=== PATIENT | male | born 1980 | race African-American/Black ===

== ENCOUNTER 2016-08-19 20:08 | Emergency (ER) | payer OTHER ==
[~2016-08-19] VITALS: Ht 190.5 cm; Wt 85.0 kg
[~2016-08-19 20:08] MED LIST: LORC10TA PO; PRAM1AER PR; Z.0.NO CURRENT MEDS
[2016-08-19 20:28] VITALS: BP 150/82; PULSE 87; RESP 17; TEMP 98.2; O2SAT 98
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
[2016-08-19] MEDS ORDERED: TETANUS/DIPHTHERIA TOXOID ADULT 0.5 ML VIAL IM ONE (20:45)
[2016-08-19 21:02] LABS: AUTOMATED NEUTROPHIL # 6.4 TH/MM3 (1.8-7.7); BASOPHIL # 0.1 TH/MM3 (0-0.2); BASOPHIL % 0.9 % (0.0-2.0); EOSINOPHIL # 0.2 TH/MM3 (0-0.4); EOSINOPHIL % 1.9 % (0.0-4.0); HEMO FLAGS DIFF FINAL; LYMPH % 31.1 % (9.0-44.0); LYMPHOCYTE # 3.4 TH/MM3 (1.0-4.8); MEAN CELL VOLUME 95.4 FL (80.0-100.0); MEAN CORPUSCULAR HEMOGLOBIN 33.6 PG (27.0-34.0); MEAN CORPUSCULAR HGB CONC 35.2 % (32.0-36.0); MONO % 6.5 % (0.0-8.0); NEUT % 59.6 % (16.0-70.0); PLATELET COUNT 289 TH/MM3 (150-450); RED BLOOD COUNT 5.03 MIL/MM3 (4.50-5.90); WHITE BLOOD COUNT 10.8 TH/MM3 (4.0-11.0)
[2016-08-19 21:12] LABS: ANION GAP 10 MEQ/L (5-15)
[2016-08-19 21:15] LABS: ALKALINE PHOSPHATASE 78 U/L (45-117); ALT (GPT) 19 U/L (12-78); AST (GOT) 18 U/L (15-37); BICARBONATE 25.1 MEQ/L (21.0-32.0); BLOOD UREA NITROGEN 6 MG/DL (7-18); CHLORIDE 106 MEQ/L (98-107); GLOMERULAR FILTRATION RATE 106 ML/MIN (>89); POTASSIUM 3.5 MEQ/L (3.5-5.1); SODIUM (NA) 141 MEQ/L (136-145); TOTAL BILIRUBIN ADULT 0.3 MG/DL (0.2-1.0)
[2016-08-19 21:52] LABS: ACETAMINOPHEN LESS THAN 2.0 MCG/ML (10.0-30.0)
[2016-08-19 21:58] LABS: AMPHETAMINE, URINE NEG (NEG); BARBITURATES, URINE NEG (NEG); COCAINE, URINE NEG (NEG)
[2016-08-19 22:31] VITALS: BP 148/86; PULSE 89; RESP 19; TEMP 98.7; O2SAT 96
[2016-08-20 02:00] VITALS: BP 137/85; PULSE 79; RESP 18; O2SAT 98
[2016-08-20 06:31] VITALS: BP 143/67; PULSE 81; RESP 18; O2SAT 100
[2016-08-20 10:18] VITALS: BP 143/67; PULSE 81; RESP 18; O2SAT 100
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
== END 2016-08-20 11:56 | disposition home or self-care (01) ==
LOC: NEPA 20:08 → NEPJ 08-20 11:56
DX: F32.9 Major depressive disorder, single episode, unspecified (principal); S40.812A Abrasion of left upper arm, initial encounter; Z23 Encounter for immunization; Z72.0 Tobacco use; F10.10 Alcohol abuse, uncomplicated; X78.1XXA Intentional self-harm by knife, initial encounter; Y93.9 Activity, unspecified; Y92.9 Unspecified place or not applicable; Y99.9 Unspecified external cause status; Y90.6 Blood alcohol level of 120-199 mg/100 ml
CPT/HCPCS: 80053; 80307; 80320; 80329; 85025; 90471; 90714; G0480